=== PATIENT | male | born 1975 | race Caucasian/White ===

== ENCOUNTER 2023-11-03 19:45 | Emergency (ER) | payer BC ==
[~2023-11-03] VITALS: Ht 172.7 cm; Wt 88.0 kg
[2023-11-03 20:20] LABS: BASO # 0.1 10*3/uL (0.0-0.1); BASO % 0.6 % (0.0-1.0); EOS # 0.2 10*3/uL (0.0-0.4); EOS % 2.4 % (1.0-4.0); HEMATOCRIT 43.4 % (42.0-52.0); LYMPH # 0.3 10*3/uL (1.3-4.4); LYMPH % 3.2 % (27.0-41.0); MEAN CELL VOLUME 89.5 fl (80.0-94.0); MEAN CORPUSCULAR HGB 30.9 pg (27.0-31.0); MEAN CORPUSCULAR HGB CONC 34.6 g/dl (33.0-37.0); MONO # 0.5 10*3/uL (0.1-1.0); NEUT # 7.3 10*3/uL (2.3-7.9); NEUT % 87.6 % (47.0-73.0); PLATELET COUNT AUTOMATED 181 10*3/uL (130-400); RED BLOOD COUNT 4.85 10*6/uL (4.50-5.90); RED CELL DISTRI WIDTH 12.2 % (0-14.5); WHITE BLOOD COUNT 8.4 10*3/uL (4.8-10.8)
[2023-11-03 20:22] LABS: BILIRUBIN Negative (Negative); BLOOD Negative (Negative); CLARITY Cloudy (Clear); COLOR Yellow (Yellow); GLUCOSE Negative (Negative); KETONE Trace (Negative); LEUKO ESTERASE Negative (Negative); NITRITE Negative (Negative); PH 5.5 (4.5-8.0); SPECIFIC GRAVITY >= 1.030 (1.001-1.030)
[2023-11-03 20:32] LABS: ACT PARTIAL THROMBO TIME 28.9 SECONDS (20.0-32.1)
[2023-11-03 20:33] LABS: BACTERIA 1+; MUCOUS 2+
[2023-11-03 20:46] LABS: ALKALINE PHOSPHATASE 60 U/L (46-116); BUN 15 mg/dl (9-23); CHLORIDE 105 mmol/L (98-107); LIPASE 33 U/L (12-53); POTASSIUM 3.6 mmol/L (3.4-5.1); SGPT/ALT 26 U/L (5-49); TOTAL PROTEIN 7.1 gm/dL (6.0-8.0)
[2023-11-03 20:52] LABS: URINE AMPHETAMINES Negative (1000ng/ml); URINE BARBITURATES Negative (200ng/ml); URINE BENZODIAZEPINES Negative (200ng/ml); URINE CANNABINOIDS (THC) Negative (50ng/ml); URINE COCAINE Negative (300ng/ml); URINE METHADONE Negative (300ng/ml); URINE OPIATES Negative (300ng/ml); URINE PHENCYCLIDINE Negative (25ng/ml)
[2023-11-03 20:53] LABS: ETHYL ALCOHOL < 3.0 mg/dl (<3)
[2023-11-03] MEDS ORDERED: TAMIFLU 75MG CA75 MG PO (21:48)
== END 2023-11-03 22:40 | disposition home or self-care (01) ==
LOC: ED 19:45
PROVIDERS: Internal Medicine
DX: J10.1 Influenza due to other identified influenza virus with other respiratory manifestations (principal); Z20.822 Contact with and (suspected) exposure to COVID-19; F17.200 Nicotine dependence, unspecified, uncomplicated

== ENCOUNTER 2024-09-17 08:12 | Emergency (ER) | payer BC ==
[~2024-09-17] VITALS: Ht 172.7 cm; Wt 86.2 kg
[~2024-09-17 08:12] MED LIST: TAMIFLU 75MG CA75 MG PO
[2024-09-17] MEDS ORDERED: Ondansetron Hydrochloride 4 MG/2 ML VIAL IV ONE (08:45)
[2024-09-17] MEDS ORDERED: SODIUM CHLORIDE 0.9% 1,000 ML IV ONE (08:45)
[2024-09-17] MEDS ORDERED: MORPHINE Sulfate 2 MG/ML SYR IV ONE (08:45)
[2024-09-17] MEDS ORDERED: Ketorolac Tromethamine 15 MG/ML VIAL IV ONE (08:45)
[2024-09-17 09:00] LABS: BASO # 0.1 10*3/uL (0.0-0.1); BASO % 0.5 % (0.0-1.0); EOS # 0.8 10*3/uL (0.0-0.4); EOS % 4.7 % (1.0-4.0); HEMATOCRIT 48.5 % (42.0-52.0); MEAN CELL VOLUME 91.2 fl (80.0-94.0); MEAN CORPUSCULAR HGB 29.9 pg (27.0-31.0); MEAN CORPUSCULAR HGB CONC 32.8 g/dl (33.0-37.0); MEAN PLATELET VOLUME 9.8 fl (9.6-12.3); MONO # 1.2 10*3/uL (0.1-1.0); NEUT % 77.8 % (47.0-73.0); PLATELET COUNT AUTOMATED 289 10*3/uL (130-400); RED BLOOD COUNT 5.32 10*6/uL (4.50-5.90); RED CELL DISTRI WIDTH 12.8 % (0-14.5); WHITE BLOOD COUNT 16.7 10*3/uL (4.8-10.8)
[2024-09-17 09:23] LABS: BUN 20 mg/dl (9-23); CHLORIDE 106 mmol/L (98-107); POTASSIUM 3.7 mmol/L (3.4-5.1)
[2024-09-17 09:30] LABS: BILIRUBIN Negative (Negative); BLOOD 3+ (Negative); CLARITY Turbid (Clear); COLOR Yellow (Yellow); GLUCOSE Negative (Negative); KETONE Negative (Negative); LEUKO ESTERASE 2+ (Negative); NITRITE Positive (Negative)
[2024-09-17 09:45] LABS: BACTERIA 3+; RBC TNTC rbc/hpf (0-2); WBC TNTC wbc/hpf (0-5)
[2024-09-17] MEDS ORDERED: Ceftriaxone Sodium 1 GM/10 ML SYR IV ONE (10:10)
[2024-09-17] MEDS ORDERED: CIPRO500 MG PO (10:16)
[2024-09-17] MEDS ORDERED: MELOXICAM15 MG PO (10:16)
== END 2024-09-17 18:28 | disposition home or self-care (01) ==
LOC: ED 08:12
PROVIDERS: Emergency Medicine
DX: N39.0 Urinary tract infection, site not specified (principal); N13.4 Hydroureter; N20.0 Calculus of kidney; R11.0 Nausea

== ENCOUNTER 2024-10-01 18:12 | Inpatient (IN) | payer BC ==
[~2024-10-01] VITALS: Ht 172.7 cm; Wt 83.9 kg
[~2024-10-01 18:12] MED LIST changes: +CIPRO500 MG PO; +MELOXICAM15 MG PO
[2024-10-01 18:23] VITALS: BP 122/97
[2024-10-01] MEDS ORDERED: SODIUM CHLORIDE 0.9% 1,000 ML IV SCH (18:40)
[2024-10-01 19:10] LABS: HEMATOCRIT 40.6 % (42.0-52.0); MEAN CELL VOLUME 87.9 fl (80.0-94.0); MEAN CORPUSCULAR HGB 29.7 pg (27.0-31.0); MEAN CORPUSCULAR HGB CONC 33.7 g/dl (33.0-37.0); MEAN PLATELET VOLUME 10.1 fl (9.6-12.3); PLATELET COUNT AUTOMATED 270 10*3/uL (130-400); RED BLOOD COUNT 4.62 10*6/uL (4.50-5.90); RED CELL DISTRI WIDTH 13.2 % (0-14.5); WHITE BLOOD COUNT 19.3 10*3/uL (4.8-10.8)
[2024-10-01 19:24] LABS: MANUAL DIFF REFLEX YES
[2024-10-01 19:37] LABS: ALKALINE PHOSPHATASE 67 U/L (46-116); BUN 13 mg/dl (9-23); CHLORIDE 97 mmol/L (98-107); POTASSIUM 3.4 mmol/L (3.4-5.1); SGPT/ALT 17 U/L (5-49); TOTAL PROTEIN 7.3 gm/dL (6.0-8.0)
[2024-10-01 20:32] LABS: BURR CELLS FEW; PLATELET SUFFICIENCY NORMAL (NORMAL); TOTAL CELLS COUNTED 100 #CELLS
[2024-10-01 20:42] LABS: BILIRUBIN Negative (Negative); BLOOD 1+ (Negative); CLARITY Cloudy (Clear); COLOR Yellow (Yellow); GLUCOSE Negative (Negative); KETONE Trace (Negative); LEUKO ESTERASE 3+ (Negative); NITRITE Positive (Negative); SPECIFIC GRAVITY <= 1.005 (1.001-1.030)
[2024-10-01 20:58] LABS: BACTERIA 4+; WBC TNTC wbc/hpf (0-5)
[2024-10-01 21:28] VITALS: BP 140/90
[2024-10-01] MEDS ORDERED: Ketorolac Tromethamine 30 MG/ML VIAL IV ONE (21:35)
[2024-10-01] MEDS ORDERED: cefTRIAXone Sodium 1 GM/10 ML SYR IV ONE (21:35)
[2024-10-01] MEDS ORDERED: Ondansetron Hydrochloride 4 MG/2 ML VIAL IV PRN (23:00)
[2024-10-01] MEDS ORDERED: ACETAMINOPHEN 325 MG TAB PO PRN (23:00)
[2024-10-01] MEDS ORDERED: MORPHINE Sulfate 2 MG/ML SYR IV PRN (23:00)
[2024-10-01] MEDS ORDERED: Acetaminophen/Hydrocodone 5 MG/325 MG TABLET PO PRN (23:00)
[2024-10-01] MEDS ORDERED: TEMAZEPAM 15 MG CAP PO PRN (23:00)
[2024-10-01] MEDS ORDERED: BISACODYL 10 MG SUPP R PRN (23:00)
[2024-10-01] MEDS ORDERED: BISACODYL 5 MG TAB PO PRN (23:00)
[2024-10-01] MEDS ORDERED: Magnesium Hydroxide 30 ML UDC PO PRN (23:00)
[2024-10-01] MEDS ORDERED: ACETAMINOPHEN 650 MG SUPP R PRN (23:00)
[2024-10-02] VITALS (9 sets, daily range): BP systolic 104–151; BP diastolic 67–94
[2024-10-02] MEDS ORDERED: fentaNYL CITRATE 100 MCG/2 ML VIAL IV PRN (03:00)
[2024-10-02] MEDS ORDERED: Meropenem 1 GM in SODIUM CHLORIDE 0.9% 100 ML IV SCH (06:00)
[2024-10-02] MEDS ORDERED: SODIUM CHLORIDE 0.9% 1,000 ML IV ONE ×2 (06:05→13:00)
[2024-10-02 06:28] LABS: HEMATOCRIT 39.5 % (42.0-52.0); MEAN CELL VOLUME 91.6 fl (80.0-94.0); MEAN CORPUSCULAR HGB 29.7 pg (27.0-31.0); MEAN CORPUSCULAR HGB CONC 32.4 g/dl (33.0-37.0); MEAN PLATELET VOLUME 10.6 fl (9.6-12.3); PLATELET COUNT AUTOMATED 195 10*3/uL (130-400); RED BLOOD COUNT 4.31 10*6/uL (4.50-5.90); RED CELL DISTRI WIDTH 13.4 % (0-14.5); WHITE BLOOD COUNT 18.8 10*3/uL (4.8-10.8)
[2024-10-02 06:29] LABS: MANUAL DIFF REFLEX YES
[2024-10-02 07:01] LABS: PLATELET SUFFICIENCY NORMAL (NORMAL); TOTAL CELLS COUNTED 100 #CELLS
[2024-10-02 07:56] LABS: BUN 15 mg/dl (9-23); CHLORIDE 103 mmol/L (98-107); CHOLESTEROL 128 mg/dL (<200); FREE T4 1.06 ng/dl (0.89-1.76); LDL CHOLESTEROL 84 mg/dL (9-159); POTASSIUM 3.9 mmol/L (3.4-5.1); TRIGLYCERIDES 98 mg/dl (<150)
[2024-10-02] MEDS ORDERED: Meropenem 50 ML IV SCH (08:00)
[2024-10-02 08:28] LABS: VITAMIN D, 25-HYDROXY 8.5 ng/mL (30-100)
[2024-10-02] MEDS ORDERED: Enoxaparin Sodium 40 MG/0.4 ML SYR SC SCH (10:00)
[2024-10-02] MEDS ORDERED: ACETAMINOPHEN 60 ML IV ONE (11:05)
[2024-10-03 02:03] VITALS: BP 155/77
[2024-10-03 05:50] VITALS: BP 116/72
[2024-10-03 06:45] LABS: BASO # 0.1 10*3/uL (0.0-0.1); BASO % 0.4 % (0.0-1.0); EOS # 0.2 10*3/uL (0.0-0.4); EOS % 1.5 % (1.0-4.0); HEMATOCRIT 34.1 % (42.0-52.0); MEAN CORPUSCULAR HGB 29.9 pg (27.0-31.0); MEAN CORPUSCULAR HGB CONC 33.7 g/dl (33.0-37.0); MEAN PLATELET VOLUME 10.2 fl (9.6-12.3); MONO # 1.5 10*3/uL (0.1-1.0); MONO % 10.3 % (3.0-9.0); NEUT % 78.3 % (47.0-73.0); PLATELET COUNT AUTOMATED 200 10*3/uL (130-400); RED BLOOD COUNT 3.85 10*6/uL (4.50-5.90); RED CELL DISTRI WIDTH 13.2 % (0-14.5); WHITE BLOOD COUNT 14.1 10*3/uL (4.8-10.8)
[2024-10-03 06:57] LABS: MEAN CELL VOLUME 88.6 fl (80.0-94.0)
[2024-10-03 07:42] LABS: ALKALINE PHOSPHATASE 80 U/L (46-116); BUN 9 mg/dl (9-23); CHLORIDE 102 mmol/L (98-107); POTASSIUM 3.5 mmol/L (3.4-5.1); SGPT/ALT 21 U/L (5-49)
[2024-10-03 08:00] VITALS: BP 138/90
[2024-10-03] MEDS ORDERED: Cholecalciferol 2,000 UNIT TABLET (50 MCG) PO SCH (10:00)
[2024-10-03] MEDS ORDERED: OXYCODONE HCL (IR) 5 MG TAB PO PRN (11:15)
[2024-10-03] MEDS ORDERED: ACETAMINOPHEN 100 ML IV SCH (14:00)
== END 2024-10-03 14:25 | disposition short-term general hospital (02) | DRG 872 ==
LOC: ED 18:12 → EDHOLD 22:52
PROVIDERS: Internal Medicine; Student in an Organized Health Care Education/Training Program; ADMIT Internal Medicine; ATTEND Internal Medicine
DX: A41.9 Sepsis, unspecified organism (principal); N41.0 Acute prostatitis; E87.1 Hypo-osmolality and hyponatremia; N13.6 Pyonephrosis; N41.2 Abscess of prostate; N42.89 Other specified disorders of prostate; E83.51 Hypocalcemia; F17.210 Nicotine dependence, cigarettes, uncomplicated; D64.9 Anemia, unspecified; N32.89 Other specified disorders of bladder; R73.9 Hyperglycemia, unspecified; Z71.6 Tobacco abuse counseling

== ENCOUNTER → 2024-10-27 | Outpatient (CLI) | payer BC ==
[~2024-10-27] MED LIST changes: +IOHEXOL 300 MG/ML 100 ML VIAL IV ONE
== END | disposition home or self-care (01) ==
LOC: CT 13:46
PROVIDERS: ATTEND Nurse Practitioner Family
DX: N42.83 Cyst of prostate (principal); K42.9 Umbilical hernia without obstruction or gangrene; N41.0 Acute prostatitis

== ENCOUNTER 2024-11-02 20:35 | Emergency (ER) | payer BC ==
[~2024-11-02] VITALS: Ht 172.7 cm; Wt 81.6 kg
[~2024-11-02 20:35] MED LIST changes: -IOHEXOL 300 MG/ML 100 ML VIAL IV ONE
[2024-11-02] MEDS ORDERED: LORazepam 1 MG TAB PO ONE (21:00)
[2024-11-02 21:14] LABS: BASO # 0.1 10*3/uL (0.0-0.1); BASO % 0.5 % (0.0-1.0); EOS # 0.3 10*3/uL (0.0-0.4); EOS % 2.8 % (1.0-4.0); HEMATOCRIT 43.9 % (42.0-52.0); MEAN CELL VOLUME 87.8 fl (80.0-94.0); MEAN CORPUSCULAR HGB 29.8 pg (27.0-31.0); MEAN CORPUSCULAR HGB CONC 33.9 g/dl (33.0-37.0); MEAN PLATELET VOLUME 9.5 fl (9.6-12.3); MONO # 0.6 10*3/uL (0.1-1.0); MONO % 5.9 % (3.0-9.0); NEUT # 7.5 10*3/uL (2.3-7.9); NEUT % 78.5 % (47.0-73.0); PLATELET COUNT AUTOMATED 245 10*3/uL (130-400); RED CELL DISTRI WIDTH 13.7 % (0-14.5); WHITE BLOOD COUNT 9.5 10*3/uL (4.8-10.8)
[2024-11-02 21:47] LABS: BUN 21 mg/dl (9-23); CHLORIDE 100 mmol/L (98-107); POTASSIUM 3.4 mmol/L (3.4-5.1)
[2024-11-02] MEDS ORDERED: VISTARIL25 MG PO (22:17)
== END 2024-11-02 22:17 | disposition home or self-care (01) ==
LOC: ED 20:35
PROVIDERS: Physician Assistant Medical
DX: F41.9 Anxiety disorder, unspecified (principal); R42 Dizziness and giddiness; R20.2 Paresthesia of skin; Z98.890 Other specified postprocedural states; Z87.891 Personal history of nicotine dependence